=== PATIENT | female | born 1950 | race Caucasian/White ===

== ENCOUNTER 2017-07-10 21:28 | Emergency (ER) | payer MEDICARE, OTHER ==
--- NOTE | 2017-07-10 22:36 | ED Physician Documentation ---
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 no recallable injury; she says she was active today including gardening, although she also says this was not an unusual amount of activity for her. H/O DVT (decades ago) Review of Systems Constitutional: denies: Fever Cardiac: denies: Chest pain / pressure Respiratory: denies: Dyspnea Musculoskeletal: reports: Extremity pain, Pain with weight bearing. denies: Extremity swelling Neurologic: denies: Focal weakness, Numbness PD PAST MEDICAL HISTORY - Past Medical History Cardiovascular: Deep vein thrombosis - Past Surgical History Ortho: Spine surgery - Present Medications Home Medications: Ambulatory Orders Medication Instructions Recorded Confirmed oxyCODONE/ACET 5/325 [Percocet 5 1 - 2 each PO Q6H PRN #14 tablet 07/11/17 mg/325 mg] - Allergies Allergies/Adverse Reactions: Allergies Allergy/AdvReac Type Severity Reaction Status Date / Time No Known Drug Allergies Allergy Verified 07/10/17 22:46 - Social History Does the pt smoke?: No Smoking Status: Never smoker Does the pt drink ETOH?: Yes ETOH Use: Wine Does the pt have substance abuse?: No - Immunizations Immunizations are current?: Yes - POLST Patient has POLST: No PD ED PE NORMAL - Vitals Vital signs reviewed: Yes - General General: Alert and oriented X 3, No acute distress, Well developed/nourished - Derm Derm: Normal color, Warm and dry, No rash - Extremities Extremities: No edema, No calf tenderness / cord - Neuro Neuro: No motor deficit, No sensory deficit PD ED PE EXPANDED - Extremities Extremities: Tenderness (left knee, lateral aspect), Limited ROM, Pedal Pulses Present. No: Swelling Results - Vitals Vitals: Vital Signs - 24 hr 07/10/17 07/11/17 22:50 00:58 Temperature 36.5 C Heart Rate 102 H 87 Respiratory 20 18 Rate Blood Pressure 129/80 127/77 O2 Saturation 96 97 Oxygen O2 Source Room air PD MEDICAL DECISION MAKING - ED course Complexity details: reviewed results, re-evaluated patient, considered differential, d/w patient ED course: exam is not particularly suggestive of DVT, but given her h/o DVT and no obvious explanation for her pain (such as injury or evidence of infection on exam), US ordered; this did not reveal any abnormality and patient had significant pain relief with PO meds in ED Departure - Departure Disposition: 01 Home, Self Care Clinical Impression: Pain of lower extremity Condition: Good Instructions: ED Muscle Pain Leg Cramps Prescriptions: oxyCODONE/ACET 5/325 [Percocet 5 mg/325 mg] 1 - 2 each PO Q6H PRN #14 tablet PRN Reason: Pain Discharge Date/Time: 07/11/17 00:58
[2017-07-10] MEDS ORDERED: oxyCOD/ACETAMIN 5 MG/325 MG TABLET PO STA (22:44)
--- NOTE | 2017-07-11 00:23 | Ultrasound Report ---
EXAM: LEFT LOWER EXTREMITY VENOUS ULTRASOUND EXAM DATE: 07/11/2017 12:10 AM. CLINICAL HISTORY: LLE pain. COMPARISON: None. TECHNIQUE: Real-time sonographic vascular imaging was performed by the home health assistant through the lower extremity utilizing both color-flow and Doppler spectral analysis. Multiple liability claims representative static antwon ges were saved for review. FINDINGS: Common Femoral Vein (CFV): Normal. CFV-GSV Junction: Normal. Profunda Femoral Vein (PFV): Normal. Femoral Vein (FV) Prox: Normal. Femoral Vein (FV) Mid: Normal. Femoral Vein (FV) Dist: Normal. Popliteal Vein: Normal. Posterior Tibial Veins: Normal. Peroneal Veins: Normal. Contralateral Side CFV: Normal. Other: None. IMPRESSION: No evidence for deep venous thrombosis. [facility] Referring Provider Line: [phone] SITE ID: [id number]
--- NOTE | 2017-07-11 00:23 | Ultrasound Preliminary Report ---
Exam: US DUPLEX EXT VEINS LEFT IMPRESSION: No evidence for deep venous thrombosis. [facility] SITE ID: [id number]
[2017-07-11 00:59] VITALS: BP 127/77
== END 2017-07-11 00:58 | disposition home or self-care (01) ==
LOC: ED 21:28
DX: M25.562 Pain in left knee (principal); Z86.718 Personal history of other venous thrombosis and embolism
CPT/HCPCS: 93971; 99283; A9270